=== PATIENT | female | born 1995 | race American Indian/Alaskan Native ===

== ENCOUNTER 2017-09-04 18:38 | Inpatient (IN) | payer OTHER ==
[2017-09-04 19:23] VITALS: BMI 31.4
--- NOTE | 2017-09-04 19:34 | OBADHP ---
Datetime: 09/04/2017 19:28 Admit Comment, IP Provider: Patient is a @ 38.6 wks with contractions, slight spotting, +FM. Melquiades gonsalves denies any antepartum issues, GBS negative, no medical problems, no surgeries. VE=/-2 [id number] mod brandon, no accels no decels TOCO = ctxning q 2-5 mins A/P 1. Patient admitted for labor. IVF, CBC, type and screen 2. Attending notified 3. CEFM and TOCO 4. Re-evaluate as needed Pelvic Type - PN: Adequate Extremities - PN: Normal Abdomen - PN: Normal Back - PN: Normal Breast - PN: Normal Lungs - PN: Normal Heart - PN: Normal Thyroid - PN: Normal Neurologic - PN: Normal HEENT - PN: Normal General - PN: Normal FHR - Baseline A Provider: 120 Contraction Comments Provider: q 2-5 mins Vital Signs Provider: Reviewed; Within Normal Limits IP Chief Complaint: Uterine contractions NICHD Variability Prov Fetus A: Moderate 6-25bpm NICHD Decel Fetus A IP Provider: None Dilatation, Provider: 5 Effacement, Provider: 70 Station, Provider: -2 Genitourinary Exam: Normal DTRs - PN: Normal IP Adm Impression: Term, intrauterine IP Admit Plan: Admit to unit
[2017-09-04] MEDS: Lactated Ringer's 1,000 ML IV SCH ×2 (20:05→22:52)
[2017-09-04 20:14] LABS: HEMOGLOBIN 11.3 g/dL (12.0-16.0); MEAN CELL VOLUME 91.9 fl (81.0-99.0); MEAN CORPUSCULAR HEMOGLOBIN 29.4 pg (27.0-31.0); RBC 3.85 Mil/uL (3.80-5.20); RED CELL DISTRIBUTION WIDTH 14.7 % (11.5-14.5)
[2017-09-04] MEDS ORDERED: Nalbuphine 20 mg/ml Inj (1 ml) IVP PRN (20:23)
[2017-09-04 21:09] VITALS: O2SAT 99
[2017-09-05] MEDS ORDERED: Fentanyl/Bupivacaine HCl 250 ML EPI ONE (00:19)
[2017-09-05] MEDS: Lactated Ringer's 1,000 ML IV SCH ×2 (00:30)
[2017-09-05] MEDS ORDERED: Lidocaine 2% Inj (20ml) ONE (02:05)
[2017-09-05] MEDS ORDERED: Oxycodone/Acetaminophen 5/325 mg Tab PO PRN ×4 (02:57→04:55)
[2017-09-05] MEDS ORDERED: Benzocaine/Menthol SPRAY TOP PRN (02:57)
--- NOTE | 2017-09-05 03:12 | OBDS ---
MATERNAL INFORMATION Estimated Blood Loss (ml): 300ml Maternal Complications: None Provider Comments: delivery of baby boy 9/9 clear fluid cord with 3 vessels midline episiotomy and repair LABOR SUMMARY EDC: 09/10/2017 00:00 No. Babies in Womb: 1 Attempted: No LABOR INFORMATION Reason for Induction: Not Applicable Onset of Labor: 09/04/2017 11:30 Group B Beta Strep: Negative Steroids Given: None Reason Steroids Not Administered: Not Applicable VAGINAL DELIVERY Laceration Extension: N/A Laceration Type: None Laceration Repair Note: midline episiotomy repaired with 2-0chromic Count Comment: correct BABY A INFORMATION Method of Delivery: Vaginal Born in Route : No : N/A PRESENTATION/POSITION BABY A Presentation: Cephalic INFORMATION BABY A Gestational Status: Term IDENTIFICATION/MEDS BABY A ID Band Number: [id number]
[2017-09-05] MEDS: Benzocaine/Menthol SPRAY TOP PRN (05:02)
[2017-09-05 06:13] LABS: BASO % 0.1 % (0.0-2.0); HEMOGLOBIN 9.3 g/dL (12.0-16.0); LYMPH % 5.5 % (20.0-40.0); MEAN CORPUSCULAR HEMOGLOBIN 29.1 pg (27.0-31.0); MEAN CORPUSCULAR HGB CONC 31.7 g/dL (33.0-37.0); MEAN PLATELET VOLUME 9.6 fl (7.2-11.7); MONO # 1.8 K/uL (0.0-0.8); MONO % 10.4 % (0.0-10.0); NEUT # 14.7 K/uL (1.8-7.0); RBC 3.19 Mil/uL (3.80-5.20); RED CELL DISTRIBUTION WIDTH 14.5 % (11.5-14.5); WHITE BLOOD COUNT 17.5 K/uL (4.8-10.8)
[2017-09-05 06:46] LABS: PLATELET COUNT 106 K/uL (130-400)
[2017-09-05 09:22] LABS: LYMPHOCYTE 4 % (20-50); MONOCYTE 15 % (0-10); NEUTROPHIL 81 % (42-75); TOTAL CELLS COUNTED 100
[2017-09-05 09:23] LABS: HYPOCHROMIC SLIGHT; PLATELET ESTIMATE DECREASED (NORMAL)
[2017-09-05 09:24] LABS: GIANT PLATELETS PRESENT; LARGE PLATELETS PRESENT; TEARDROP CELLS SLIGHT
[2017-09-06] MEDS: Benzocaine/Menthol SPRAY TOP PRN (08:05)
--- NOTE | 2017-09-06 08:09 | OBPPN ---
Datetime: 09/06/2017 08:01 PP Pain Prov: Within normal limits PP Pain Prov comment: No SOB, no chest pains or leg pain PP Nausea Prov: Denies PP Flatus Prov: Yes PP Nausea Prov comment: voiding well PP Breasts Prov: Normal PP Lungs Prov: Normal PP Abdomen/Uterus Prov: Abnormal PP Lochia Prov: Normal PP Vulva/Perineum Prov: Abnormal PP CVA Tenderness Prov: Normal PP Extremities Prov: Normal PP C/S Incision Prov: Not Applicable PP Progress Prov: Not Applicable PP Comments Phys Exam Prov: Breast not engorged NT, Abd soft NT, fundus firm below the umb. Perineu m repaired Ext no calf tenderness PP Impression Prov: Normal progression PP Plan Prov: Continue present management PP Progress Note Prov: Stat plattelet count and start po iron Continue PP care and OOB and ambulatio n IP PP Procedures: None Vital Signs Provider PP: Reviewed
--- NOTE | 2017-09-07 07:40 | OBPPN ---
Datetime: 09/07/2017 07:33 PP Pain Prov: Within normal limits PP Pain Prov comment: No SOB, chest or leg pains PP Nausea Prov: Denies PP Flatus Prov: Yes PP Nausea Prov comment: voiding well PP Breasts Prov: Normal PP Lungs Prov: Normal PP Abdomen/Uterus Prov: Abnormal PP Lochia Prov: Normal PP Vulva/Perineum Prov: Abnormal PP CVA Tenderness Prov: Normal PP Extremities Prov: Normal PP C/S Incision Prov: Not Applicable PP Progress Prov: Not Applicable PP Comments Phys Exam Prov: breast not engorged. Abd soft ND, fundus firm below the umb, NT Perine um repaired Ext no calf tenderness PP Impression Prov: Normal progression PP Plan Prov: Discharge PP Progress Note Prov: Plat count repeated yesterday and went up mannual count done and was normal. Discussed with pt the results and D/C home with instructions and folllow up Dr Bernstein IP PP Procedures: None Vital Signs Provider PP: Reviewed
--- NOTE | 2017-09-07 07:42 | OBDCSUM ---
Datetime: 09/07/2017 07:38 Discharged to, Provider: Home Follow up at, Provider: Dr Irene Disch Instr Activity: Bedrest; May be up to bathroom; May be up for meals; May Shower Disch Instr Diet: Regular Discharge Instructions, Provider: Routine instructions given Discharge Diagnosis, Provider: Term Delivered Follow up in weeks, Provider: 4-6 wks Disch Referrals: None Contraception discussed, Prov: Yes Disch Activity Restrictions: No exercising; No lifting; No driving; Minimize walking; Minimize stair -climbing; No sexual activity; Nothing in vagina - [place], tampons, douche Discharge Comment, Provider: Continue PNC vit and iron Instructions given Contraception after Delivery: Undecided
[2017-09-07 17:26] VITALS: BP 100/57; PULSE 95; RESP 20; TEMP 97.8
== END 2017-09-07 13:00 | disposition home or self-care (01) | DRG 775 ==
LOC: H.EROB2 18:38 → H.L&D 19:23 → H.OB/GYN 09-05 05:30
PROVIDERS: ADMIT Specialist; ATTEND Specialist
PROC: 4A1HXCZ Monitoring of Products of Conception, Cardiac Rate, External Approach (ICD-10-PCS; 2017-09-04)
PROC: 10E0XZZ Delivery of Products of Conception, External Approach (ICD-10-PCS; principal; 2017-09-05)
PROC: 0W8NXZZ Division of Female Perineum, External Approach (ICD-10-PCS; 2017-09-05)
DX: O62.8 Other abnormalities of forces of labor (principal); Z37.0 Single live birth; Z3A.38 38 weeks gestation of pregnancy